=== PATIENT | male | born 1990 ===

== ENCOUNTER 2024-05-10 01:04 | Inpatient (IN) | payer OTHER, SELFPAY ==
[2024-05-10 01:54] VITALS: BMI 32.6
[2024-05-10 01:59] VITALS: BP 104/70; PULSE 95; RESP 18; TEMP 36.9; O2SAT 96
--- NOTE | 2024-05-10 03:35 | PC.ADMIT ---
Fahad Riley was admitted to at 0115 as a CV on 15 minute checks, from a [facility]. His safety/skin check was unremarkable. He was admitted due to suicidal ideation as evidenced by a text to his girlfriend stating I will watch over you from the other side. If I , I love you. He has a history of PTSD, alcohol use disorder, and polysubstance use disorder. He recently discovered that his girlfriend is and is deeply distressed by this. His toxicology screen was positive for benzodiazepines, cocaine, and THC. He reported that on or about April 30, 2024, he took a shit ton of benzos and had a seizure. He initially reported to the other hospital that he drank about 30 shots a week, but later stated he only drank a few times a month. Upon admission Fahad denied SI, HI, AVH, and depression, but rated his anxiety at 10/10. He was highly irritable during the admission process, and refused to participate after some assessments and forms were completed, stating I don't give a fuck. Just make sure I have sleeping pills, so I can sleep through this. I just want to go to the NH. He requested and signed a 3 day notice at that time.
--- NOTE | 2024-05-10 06:17 | P.EN_ITS ---
Event Note Date of Service: 05/10/24 Event Note: Pt is a 34 yo male with a pmhx significant for mild intermittent asthma, admitted to adult psych from [facility] for SI. He has a hx of PTSD, etoh and polysubstance abuse. He refused to be seen, currently sleeping and was highly irritable with the nursing staff. mood disorder - plan per psych mild intermittent asthma - continue albuterol PRN polysubstance use/alcohol abuse - addiction med consult - monitor CIWA Thank you for allowing me to participate in the pt's care. Signing off for now. Please reconsult if the patient is willing to be evaluated. Time Spent With Patient Time: Total time managing care of this patient today ____ minutes.
[2024-05-10 08:00] VITALS: BP 128/63; PULSE 92; RESP 18; TEMP 36.2; O2SAT 97
--- NOTE | 2024-05-10 08:45 | HO.PSYADMNOT ---
HPI Date of Service: 05/10/24 Chief Complaint: PTSD, Alchohol Use Disorder Sources of Information: patient interviewed, chart reviewed and crisis/core team assessment reviewed HPI Subjective Notes: Avila Warning and Conditional Voluntary Diagnostics Vital Signs (24Hr): Vital Signs - 24 hr 05/10/24 01:59 Temperature 98.4 F Pulse Rate 95 Respiratory Rate 18 Blood Pressure 104/70 Pulse Oximetry 96 Oxygen Delivery Method Room Air BMI result Body Mass Index 32.6 Labs 05/10/24 07:59 Labs: Laboratory Results - last 48 hr 05/10/24 08:29 Hold Purple Top SEE NOTE Meds/Allergies Meds Home Medications ?Medication ?Instructions ?Recorded ?Confirmed ?Type albuterol sulfate 1.25 mg/3 mL 5 mg inhalation Q4H PRN wheezing 05/10/24 05/10/24 History solution for nebulization albuterol sulfate 90 mcg/actuation 2 puff inhalation Q4H 05/10/24 05/10/24 History aerosol inhaler (Ventolin HFA) Allergies Allergies Allergy/AdvReac Type Severity Reaction Status Date / Time erythromycin base Allergy Unknown Unknown Verified 05/10/24 01:57 [From Erythrocin] Assessment & Plan Statement Statement: I have reviewed the history and physical and performed a pertinent examination on my patient. No changes have occurred unless specified. If the History and Physical was not performed prior to admission, the Hospitalist's service will be consulted for completing the admission physical. Time Spent With Patient Time: Total time managing care of this patient today ____ minutes.
[2024-05-10 08:52] LABS: Alanine Aminotransferase 24 U/L (0-40); Albumin Level 4.3 g/dL (3.5-5.0); Alkaline Phosphatase 60 U/L (39-117); Anion Gap 12 (12-20); Aspartate Amino Transferase 23 U/L (5-37); Bilirubin Total 0.4 mg/dL (0.0-1.0); Blood Urea Nitrogen 15 mg/dL (9-16); Calcium 9.5 mg/dL (8.4-10.2); Carbon Dioxide 26 mmol/L (22-29); Chloride 108 mmol/L (96-108); Creatinine Clr Calc Pharmacy 185.4; Estimated Glomerular Filt Rate > 60; Glucose Random 88 mg/dL (60-115); Potassium 4.3 mmol/L (3.3-5.1); Sodium 142 mmol/L (135-145); Total Protein 7.6 g/dL (6.5-8.0)
[2024-05-10] MEDS: clonazePAM 1 MG TABLET PO ×2 (09:00→21:48)
[2024-05-10] MEDS: Nicotine 21 MG PATCH.TD24 TRANSDERMA (09:02)
[2024-05-10] MEDS: Nicotine Polacrilex 2 MG GUM BUCCAL (09:03)
[2024-05-10] MEDS: Sertraline HCL 100 MG TABLET PO (12:20)
[2024-05-10] MEDS: LORazepam 1 MG TABLET 2 MG PO ×2 (12:37→21:56)
[2024-05-10] MEDS: hydrOXYzine HCL 25 MG TABLET PO ×2 (12:38→21:48)
--- NOTE | 2024-05-10 17:18 | P.HPPS_ITS ---
HPI Date of Service: 05/10/24 Chief Complaint: PTSD, Alchohol Use Disorder Sources of Information: patient interviewed, chart reviewed and crisis/core team assessment reviewed HPI Subjective Notes: Avila Warning and Conditional Voluntary Healthcare Proxy: No Guardianship: No Medical Problems Affecting Mental Status: No Narrative: 34 yo male, [facility] [place] transfer, from [place] war. To ER after elaine called 911 as he texted her stating I love you and I will leave you everything. I will watch over you and mom from the other side. He had stopped drinking and had seizure activity in front of elaine. He then drank 30 shots of whiskey last night, BAL 29 and was abusing xanax and cocaine. [facility]. He reports he is expecting a daughter in September 2024 (IVF rx), had an argument with his girlfriend, and I need to get myself straight before the child is born . Pt is confused as to why he is here and not in [facility] system. We will attempt to help him return to his providers. Active nightmares, flashbacks with PTSD sx. Past Psychiatric History: IP: Hx of [place] OP: Yes, psychopharm, cannot recall where PTSD hx Reports of SI, no SA, hx of aggression, IRISH, detox Medical Evaluation Reviewed: Yes [facility] Medical History (Updated 05/10/24 @ 18:16 by Nita Cerrato, [employer]) Cocaine use disorder Severe benzodiazepine use disorder Alcohol use disorder PTSD (post-traumatic stress disorder) Narrative: Asthma Substance Use-alcohol, cocaine, xanax, nicotine Narrative: Tonsillectomy Substance History: Reports cocaine, nicotine, xanax Alcohol 30 drinks/week; 30 shots/week First use age 15, usually whiskey longest sobriety ~60 days Seizures three days this week due to withdrawal Trauma History: [place] vet Diagnostics Vital Signs (24Hr): Vital Signs - 24 hr 05/10/24 01:59 05/10/24 08:00 Temperature 98.4 F 97.2 F Pulse Rate 95 92 Respiratory Rate 18 18 Blood Pressure 104/70 128/63 Pulse Oximetry 96 97 Oxygen Delivery Method Room Air Room Air BMI result Body Mass Index 32.6 Labs 05/10/24 07:59 Labs: Laboratory Results - last 48 hr 05/10/24 05/10/24 07:59 08:29 Hold Purple Top SEE NOTE Sodium 142 Potassium 4.3 Chloride 108 Carbon Dioxide 26 Anion Gap 12 BUN 15 Creatinine 0.73 Estim Creat Clear Calc 185.4 Estimated GFR > 60 Random Glucose 88 Calcium 9.5 Total Bilirubin 0.4 AST 23 ALT 24 Alkaline Phosphatase 60 Total Protein 7.6 Albumin 4.3 Meds/Allergies Meds Home Medications ?Medication ?Instructions ?Recorded ?Confirmed ?Type albuterol sulfate 1.25 mg/3 mL 5 mg inhalation Q4H PRN wheezing 05/10/24 05/10/24 History solution for nebulization albuterol sulfate 90 mcg/actuation 2 puff inhalation Q4H 05/10/24 05/10/24 History aerosol inhaler (Ventolin HFA) Allergies Allergies Allergy/AdvReac Type Severity Reaction Status Date / Time erythromycin base Allergy Unknown Unknown Verified 05/10/24 01:57 [From Erythrocin] Mental Status Exam Mental Status Exam Patient Appearance: Appropriate Patient Orientation: Person, Place, Time and Situation Level of Consciousness: Alert Patient Behavior: Appropriate, Talkative, Cooperative and Good Eye Contact Mood Description: Depressed Affect Description: Flat Patient Cognition Impaired: No Ability to Follow Directions: Fair Speech Pattern: Spontaneous Speech Memory Description: Episodic Impaired Hallucinations: None Delusions: Not Present Perceptual Disturbances: Depersonalization and Derealization Thought Process: Rumination Thought Content: positive for Perseveration Depressive Symptoms: Thoughts of /Suicide Judgement: Fair Assessment & Plan Assessment & Plan (1) PTSD (post-traumatic stress disorder): Status: Acute Code(s): F43.10 - Post-traumatic stress disorder, unspecified (2) Alcohol use disorder: Status: Acute Code(s): F10.90 - Alcohol use, unspecified, uncomplicated (3) Severe benzodiazepine use disorder: Status: Acute Code(s): F13.20 - Sedative, hypnotic or anxiolytic dependence, uncomplicated (4) Cocaine use disorder: Status: Acute Code(s): F14.10 - Cocaine abuse, uncomplicated Plan PTSD, Alcohol, benzodiazapine use disorder, cocaine use disorder. Plan: Admit, CV, 15 minute checks CIWA Klonopin scheduled (Xanax withdrawal) Lorazepam prn MVI, Thiamine, Folic Acid Pt requests [facility] admit- will begin inquiry Diagnostics Collateral Contacts Discharge planning. Patient educated on: therapeutic strategies and other Reason for continued inpatient stay Substantial Risk for: harm to self, rapid decompensation and med/psych decompensation Statement Statement: I have reviewed the history and physical and performed a pertinent examination on my patient. No changes have occurred unless specified. If the History and Physical was not performed prior to admission, the Hospitalist's service will be consulted for completing the admission physical. Time Spent With Patient Time: Total time managing care of this patient today ____ minutes.
[2024-05-10] MEDS: LORazepam 1 MG TABLET PO (18:06)
[2024-05-10 20:00] VITALS: BP 135/85; PULSE 84; RESP 16; TEMP 36.4; O2SAT 98
[2024-05-10] MEDS: Acetaminophen 325 MG TABLET 650 MG PO (21:56)
[2024-05-11] MEDS: LORazepam 1 MG TABLET 2 MG PO ×5 (02:26→22:50)
[2024-05-11 05:50] VITALS: BP 112/71; PULSE 81
[2024-05-11] MEDS: hydrOXYzine HCL 25 MG TABLET PO ×2 (05:51→18:02)
[2024-05-11] MEDS: LORazepam 1 MG TABLET PO ×2 (05:51→13:13)
--- NOTE | 2024-05-11 06:06 | PC.NURSE ---
Patient woke up at at 0545 c/o feeling restless . CIWA assessment done, score of 7 obtained. Patient given Ativan 1 mg po and Hydroxyzine 25 mg po as prns.
[2024-05-11] MEDS: clonazePAM 1 MG TABLET PO ×2 (08:55→20:27)
[2024-05-11] MEDS: Thiamine HCL 100 MG TABLET PO (08:55)
[2024-05-11] MEDS: Multivitamin TABLET 1 TAB PO (08:55)
[2024-05-11] MEDS: Sertraline HCL 100 MG TABLET PO (08:55)
[2024-05-11] MEDS: Folic Acid 1 MG TABLET PO (08:56)
[2024-05-11] MEDS: Nicotine 21 MG PATCH.TD24 TRANSDERMA (09:06)
[2024-05-11 09:13] VITALS: BP 114/68; PULSE 88; RESP 18; TEMP 36.5; O2SAT 95
[2024-05-11 09:23] LABS: Estimated Average Glucose 103 mg/dL; Hemoglobin A1C 140.4525 umol/L; Hemoglobin A1c % 5.2 % (<6.0); Total Hemoglobin (HGBA1C) 4148.9096 umol/L
[2024-05-11 09:40] LABS: Cholesterol 218 mg/dL (<200); HDL Cholesterol 48 mg/dL (>40); LDL Cholesterol Calculated 137 mg/dL (<100); Triglycerides 168 mg/dL (<150)
[2024-05-11 10:40] LABS: Vitamin B12 386 pg/mL (200-900)
[2024-05-11 10:45] LABS: Thyroid Stimulating Hormone 3.59 uIU/mL (0.32-4.0)
--- NOTE | 2024-05-11 15:43 | MHC.RECOVRN ---
AUDIT-C Brief Intervention Pt had positive screen for unhealthy alcohol use on admission, subsequently met with t/w to discuss alcohol use and recovery supports/options. This financial writer met with patient to discuss current alcohol use and concerns related to increased risk of alcohol related problems.? Pt reports 1+ liter whiskey daily x a few years. Discussed how alcohol use has impacted health, including negative impact on social life/relationships. Withdrawal History: denies history of withdrawal seizure from alcohol, reports a seizure from benzodiazepine withdrawal years ago Treatment History: 10+ ATS admissions Supports:?mom, girlfriend Discussed risk reduction strategies including drinking below the recommended limit. Provided pt with written resources including information on inpatient and outpatient treatment, JOSEE, harm reduction, and recovery coaching. Pt plans to [facility] upon [facility]. Pt is also interested in [facility], Tova Camacho APRN, shaunna. Pt provided with t/w contact information if questions or concerns arise. Denies other questions or concerns at this time.?
--- NOTE | 2024-05-11 18:22 | P.PNPSI_ITS ---
Subjective Subjective Reason For Visit: PTSD, Alchohol Use Disorder Diagnostics Vital Signs (24Hr): Vital Signs - 24 hr 05/10/24 20:00 05/11/24 05:50 05/11/24 09:13 Temperature 97.5 F 97.7 F Pulse Rate 84 81 88 Respiratory Rate 16 18 Blood Pressure 135/85 112/71 114/68 Pulse Oximetry 98 95 Oxygen Delivery Method Room Air Room Air BMI result Body Mass Index 32.6 Labs 05/10/24 07:59 Labs: Laboratory Results - last 48 hr 05/10/24 05/10/24 05/11/24 07:59 08:29 09:06 Hold Purple Top SEE NOTE Sodium 142 Potassium 4.3 Chloride 108 Carbon Dioxide 26 Anion Gap 12 BUN 15 Creatinine 0.73 Estim Creat Clear Calc 185.4 Estimated GFR > 60 Random Glucose 88 Estimat Average Glucose 103 Hemoglobin A1c % 5.2 Calcium 9.5 Total Bilirubin 0.4 AST 23 ALT 24 Alkaline Phosphatase 60 Total Protein 7.6 Albumin 4.3 Triglycerides 168 H Cholesterol 218 H LDL Cholesterol, Calc 137 H HDL Cholesterol 48 Vitamin B12 386 TSH 3.59 Medications Medications Current Medications Acetaminophen (Acetaminophen 325 Mg Tablet) 650 mg PO Q6H PRN PRN Reason: Headache/Pain Mild Scale (1-3) Last Admin: 05/10/24 21:56 Dose: 650 mg Al Hydroxide/Mg Hydroxide (Magnesium Hydrox/Alum Hydrox 30 Ml Oral.Susp) 30 ml PO Q6H PRN PRN Reason: Heartburn/Nausea Albuterol Sulfate (Albuterol Sulfate (0.042%) 1.25 Mg/3 Ml Vial.Neb) 5 mg INHALE RQ4H PRN PRN Reason: wheezing Albuterol Sulfate (Albuterol Sulfate 90 Mcg 8 Gm Inhaler) 2 puff INHALE RQ4H PRN PRN Reason: sob Clonazepam (Clonazepam 1 Mg Tablet) 1 mg PO BID [facility] Last Admin: 05/11/24 08:55 Dose: 1 mg Folic Acid (Folic Acid 1 Mg Tablet) 1 mg PO DAILY [facility] Last Admin: 05/11/24 08:56 Dose: 1 mg Hydroxyzine HCl (Hydroxyzine Hcl 25 Mg Tablet) 25 mg PO Q6H PRN PRN Reason: Anxiety Last Admin: 05/11/24 18:02 Dose: 25 mg Lorazepam (Lorazepam 1 Mg Tablet) 1 mg PO Q2H PRN PRN Reason: CIWA 6-10 Last Admin: 05/11/24 13:13 Dose: 1 mg Lorazepam (Lorazepam 1 Mg Tablet) 2 mg PO Q2H PRN PRN Reason: CIWA 11 and above Last Admin: 05/11/24 16:17 Dose: 2 mg Magnesium Hydroxide (Milk Of Magnesia 30 Ml Oral.Susp) 30 ml PO DAILY PRN PRN Reason: Constipation Multivitamins/Vitamin C (Multivitamin Tablet) 1 tab PO DAILY [facility] Last Admin: 05/11/24 08:55 Dose: 1 tab Nicotine (Nicotine 21 Mg Patch.Td24) 21 mg TRANSDERMA DAILY PRN PRN Reason: nicotine cravings Last Admin: 05/11/24 09:06 Dose: 21 mg Nicotine Polacrilex (Nicotine Polacrilex 2 Mg Gum) 4 mg BUCCAL Q2H PRN PRN Reason: Nicotine Cravings Olanzapine (Olanzapine 5 Mg Tablet) 5 mg PO Q4H PRN PRN Reason: agitation Prazosin HCl (Prazosin Hcl 1 Mg Capsule) 1 mg PO BEDTIME PRN; Protocol PRN Reason: nightmares, PTSD sx Sertraline HCl (Sertraline Hcl 100 Mg Tablet) 100 mg PO DAILY [facility] Last Admin: 05/11/24 08:55 Dose: 100 mg Thiamine HCl (Thiamine Hcl 100 Mg Tablet) 100 mg PO DAILY [facility] Last Admin: 05/11/24 08:55 Dose: 100 mg Trazodone HCl (Trazodone Hcl 50 Mg Tablet) 50 mg PO BEDTIME MRX1 PRN PRN Reason: Insomnia Allergies Allergies Allergy/AdvReac Type Severity Reaction Status Date / Time erythromycin base Allergy Unknown Unknown Verified 05/10/24 01:57 [From Erythrocin] Assessment & Plan Assessment & Plan (1) PTSD (post-traumatic stress disorder): Status: Acute Code(s): F43.10 - Post-traumatic stress disorder, unspecified (2) Alcohol use disorder: Status: Acute Code(s): F10.90 - Alcohol use, unspecified, uncomplicated (3) Severe benzodiazepine use disorder: Status: Acute Code(s): F13.20 - Sedative, hypnotic or anxiolytic dependence, uncomplicated (4) Cocaine use disorder: Status: Acute Code(s): F14.10 - Cocaine abuse, uncomplicated Plan PTSD, Alcohol, benzodiazapine use disorder, cocaine use disorder. Plan: Admit, CV, 15 minute checks KARLY Klonopin scheduled (Xanax withdrawal) Lorazepam prn MVI, Thiamine, Folic Acid Pt requests [facility] admit- will begin inquiry Diagnostics Collateral Contacts Discharge planning. Time Spent With Patient Time: Total time managing care of this patient today ____ minutes.
[2024-05-11 20:00] VITALS: BP 116/68; PULSE 84; RESP 16; TEMP 36.2; O2SAT 96
[2024-05-11] MEDS: traZODone HCL 50 MG TABLET PO ×2 (20:33→22:50)
[2024-05-12 00:40] VITALS: BP 107/74; PULSE 91
[2024-05-12] MEDS: OLANZapine 5 MG TABLET PO (00:43)
--- NOTE | 2024-05-12 03:49 | PC.NURSE ---
Patient was encouraged to drink fluids. This com writer noted empty cereal cartons and several juice cartons at the bedside.
[2024-05-12 08:00] VITALS: BP 114/61; PULSE 86; RESP 18; TEMP 36.4; O2SAT 97
[2024-05-12] MEDS: Thiamine HCL 100 MG TABLET PO (09:57)
[2024-05-12] MEDS: Sertraline HCL 100 MG TABLET PO (09:58)
[2024-05-12] MEDS: clonazePAM 1 MG TABLET PO (09:58)
[2024-05-12] MEDS: Folic Acid 1 MG TABLET PO (09:58)
[2024-05-12] MEDS: Multivitamin TABLET 1 TAB PO (09:58)
--- NOTE | 2024-05-12 10:01 | HO.PSYCHPN ---
Subjective Subjective Reason For Visit: PTSD, Alchohol Use Disorder Diagnostics Vital Signs (24Hr): Vital Signs - 24 hr 05/11/24 20:00 05/12/24 00:40 Temperature 97.2 F Pulse Rate 84 91 Respiratory Rate 16 Blood Pressure 116/68 107/74 Pulse Oximetry 96 Oxygen Delivery Method Room Air BMI result Body Mass Index 32.6 Labs 05/10/24 07:59 Labs: Laboratory Results - last 48 hr 05/11/24 09:06 Estimat Average Glucose 103 Hemoglobin A1c % 5.2 Triglycerides 168 H Cholesterol 218 H LDL Cholesterol, Calc 137 H HDL Cholesterol 48 Vitamin B12 386 TSH 3.59 Medications Medications Current Medications Acetaminophen (Acetaminophen 325 Mg Tablet) 650 mg PO Q6H PRN PRN Reason: Headache/Pain Mild Scale (1-3) Last Admin: 05/10/24 21:56 Dose: 650 mg Al Hydroxide/Mg Hydroxide (Magnesium Hydrox/Alum Hydrox 30 Ml Oral.Susp) 30 ml PO Q6H PRN PRN Reason: Heartburn/Nausea Albuterol Sulfate (Albuterol Sulfate (0.042%) 1.25 Mg/3 Ml Vial.Neb) 5 mg INHALE RQ4H PRN PRN Reason: wheezing Albuterol Sulfate (Albuterol Sulfate 90 Mcg 8 Gm Inhaler) 2 puff INHALE RQ4H PRN PRN Reason: sob Clonazepam (Clonazepam 1 Mg Tablet) 1 mg PO BID [facility] Last Admin: 05/12/24 09:58 Dose: 1 mg Folic Acid (Folic Acid 1 Mg Tablet) 1 mg PO DAILY [facility] Last Admin: 05/12/24 09:58 Dose: 1 mg Hydroxyzine HCl (Hydroxyzine Hcl 25 Mg Tablet) 25 mg PO Q6H PRN PRN Reason: Anxiety Last Admin: 05/11/24 18:02 Dose: 25 mg Lorazepam (Lorazepam 1 Mg Tablet) 1 mg PO Q2H PRN PRN Reason: CIWA 6-10 Last Admin: 05/11/24 13:13 Dose: 1 mg Lorazepam (Lorazepam 1 Mg Tablet) 2 mg PO Q2H PRN PRN Reason: CIWA 11 and above Last Admin: 05/11/24 22:50 Dose: 2 mg Magnesium Hydroxide (Milk Of Magnesia 30 Ml Oral.Susp) 30 ml PO DAILY PRN PRN Reason: Constipation Multivitamins/Vitamin C (Multivitamin Tablet) 1 tab PO DAILY [facility] Last Admin: 05/12/24 09:58 Dose: 1 tab Nicotine (Nicotine 21 Mg Patch.Td24) 21 mg TRANSDERMA DAILY PRN PRN Reason: nicotine cravings Last Admin: 05/11/24 09:06 Dose: 21 mg Nicotine Polacrilex (Nicotine Polacrilex 2 Mg Gum) 4 mg BUCCAL Q2H PRN PRN Reason: Nicotine Cravings Olanzapine (Olanzapine 5 Mg Tablet) 5 mg PO Q4H PRN PRN Reason: agitation Last Admin: 05/12/24 00:43 Dose: 5 mg Prazosin HCl (Prazosin Hcl 1 Mg Capsule) 1 mg PO BEDTIME PRN; Protocol PRN Reason: nightmares, PTSD sx Sertraline HCl (Sertraline Hcl 100 Mg Tablet) 100 mg PO DAILY [facility] Last Admin: 05/12/24 09:58 Dose: 100 mg Thiamine HCl (Thiamine Hcl 100 Mg Tablet) 100 mg PO DAILY [facility] Last Admin: 05/12/24 09:57 Dose: 100 mg Trazodone HCl (Trazodone Hcl 50 Mg Tablet) 50 mg PO BEDTIME MRX1 PRN PRN Reason: Insomnia Last Admin: 05/11/24 22:50 Dose: 50 mg Allergies Allergies Allergy/AdvReac Type Severity Reaction Status Date / Time erythromycin base Allergy Unknown Unknown Verified 05/10/24 01:57 [From Erythrocin] Assessment & Plan Assessment & Plan (1) PTSD (post-traumatic stress disorder): Status: Acute Code(s): F43.10 - Post-traumatic stress disorder, unspecified (2) Alcohol use disorder: Status: Acute Code(s): F10.90 - Alcohol use, unspecified, uncomplicated (3) Severe benzodiazepine use disorder: Status: Acute Code(s): F13.20 - Sedative, hypnotic or anxiolytic dependence, uncomplicated (4) Cocaine use disorder: Status: Acute Code(s): F14.10 - Cocaine abuse, uncomplicated Plan PTSD, Alcohol, benzodiazapine use disorder, cocaine use disorder. Plan: Admit, CV, 15 minute checks CIWA Klonopin scheduled (Xanax withdrawal) Lorazepam prn MVI, Thiamine, Folic Acid Pt requests [facility] admit- will begin inquiry Diagnostics Collateral Contacts Discharge planning. Time Spent With Patient Time: Total time managing care of this patient today ____ minutes.
[2024-05-12] MEDS: LORazepam 1 MG TABLET PO (11:27)
--- NOTE | 2024-05-12 19:00 | P.DS_ITS ---
DS: Providers Provider Date of admission: 05/10/24 01:04 Primary care physician: Unknown Physician Consults: 05/10/24 02:31 Addiction Medicine Routine Consulting Provider: Addiction Covering Reason for consultation: AUD, IRISH Has provider been notified: Yes 05/10/24 02:40 Consult to Hospitalist Routine Comment: Consulting [place] [facility] Reason For Exam: medical h&p DS: Diagnosis Discharge Diagnosis (1) PTSD (post-traumatic stress disorder): Status: Acute (2) Alcohol use disorder: Status: Acute (3) Severe benzodiazepine use disorder: Status: Acute (4) Cocaine use disorder: Status: Acute DS: Medications Discharge Medications Home Medications: Home Medications ?Medication ?Instructions ?Recorded ?Confirmed albuterol sulfate 1.25 mg/3 mL 5 mg inhalation Q4H PRN wheezing 05/10/24 05/10/24 solution for nebulization albuterol sulfate 90 mcg/actuation 2 puff inhalation Q4H 05/10/24 05/10/24 aerosol inhaler (Ventolin HFA) Previous Rx's ?Medication ?Instructions ?Recorded clonazepam 1 mg tablet 1 mg PO BID #14 tabs 05/12/24 folic acid 1 mg tablet 1 mg PO DAILY #30 tabs 05/12/24 hydroxyzine HCl 25 mg tablet 25 mg PO Q6H PRN Anxiety #30 tabs 05/12/24 multivitamin (Daily-Candi tablet) 1 tab PO DAILY #30 tabs 05/12/24 nicotine 21 mg/24 hr daily 21 mg transdermal DAILY PRN 05/12/24 transdermal patch nicotine cravings #30 ea sertraline 100 mg tablet 100 mg PO DAILY #30 tabs 05/12/24 thiamine mononitrate (vit B1) 100 100 mg PO DAILY #30 tabs 05/12/24 mg tablet Data Data Completed and Pending Completed studies during hospitalization [Text1]: 05/10/24 05/10/24 05/11/24 07:59 08:29 09:06 Hold Purple Top SEE NOTE Sodium 142 Potassium 4.3 Chloride 108 Carbon Dioxide 26 Anion Gap 12 BUN 15 Creatinine 0.73 Estim Creat Clear Calc 185.4 Estimated GFR > 60 Random Glucose 88 Estimat Average Glucose 103 Hemoglobin A1c % 5.2 Calcium 9.5 Total Bilirubin 0.4 AST 23 ALT 24 Alkaline Phosphatase 60 Total Protein 7.6 Albumin 4.3 Triglycerides 168 H Cholesterol 218 H LDL Cholesterol, Calc 137 H HDL Cholesterol 48 Vitamin B12 386 TSH 3.59 DS: Summary Time Spent with Patient Time attestation: Total time managing care of this patient today ____ minutes. Discharge Plan Discharge Anticipated Discharge Date/Time: 05/12/24 12:00 Patient Disposition: Home, Self-Care Discharge Diagnosis: PTSD Alcohol, Cocaine, Benzodiazepine use disorder Referrals: Physician,Unknown J [Primary Care Provider] - 1 Week Discharge Medications: New multivitamin [Daily-Candi] Tablet 1 tab PO DAILY Qty: 30 0RF sertraline 100 mg Tablet 100 mg PO DAILY Qty: 30 0RF clonazepam 1 mg Tablet 1 mg PO BID Qty: 14 0RF nicotine 21 mg/24 hr Patch 24 Hour 21 mg transdermal DAILY PRN (Reason: nicotine cravings) Qty: 30 0RF folic acid 1 mg Tablet 1 mg PO DAILY Qty: 30 0RF hydroxyzine HCl 25 mg Tablet 25 mg PO Q6H PRN (Reason: Anxiety) Qty: 30 0RF thiamine mononitrate (vit B1) 100 mg Tablet 100 mg PO DAILY Qty: 30 0RF Continued albuterol sulfate 1.25 mg/3 mL solution for nebulization 5 mg inhalation Q4H PRN (Reason: wheezing) albuterol sulfate [Ventolin HFA] 90 mcg/actuation HFA aerosol inhaler 2 puff inhalation Q4H Discharge Orders: Discharge Order (Routine); Ordered 05/12/24 Ordered By: Nita Cerrato Diet: Advance to usual diet Activity on Discharge: As tolerated Stand Alone Forms: Patient Portal Discharge page, Community Support Print Language: Korean Care Plan Goals: Mood and Behavioral Stabilization Abstinence from alcohol, substances Health Concerns: Mood and Behavioral Stabilization Abstinence from alcohol, substances Plan of Treatment: Pt plans to go to [facility] for ongoing treatment. He completed an intake on 05/11/24 [facility] will transport him Assessment: Denies SI,HI, AH, VH Wanting to continue treatment as he and sailaja are expecting a daughter in September 2024. Discharge Date/Time: 05/12/24 13:40
== END 2024-05-12 13:40 | disposition home or self-care (01) | DRG 882 ==
PROVIDERS: Social Worker; Admitting Provider Psychiatry & Neurology Psychiatry; Visit Provider Clinical Nurse Specialist Psychiatric/Mental Health, Adult
DX: F43.10 Post-traumatic stress disorder, unspecified (principal); F13.20 Sedative, hypnotic or anxiolytic dependence, uncomplicated; F17.210 Nicotine dependence, cigarettes, uncomplicated; F19.90 Other psychoactive substance use, unspecified, uncomplicated; F10.10 Alcohol abuse, uncomplicated; J45.20 Mild intermittent asthma, uncomplicated; Z71.6 Tobacco abuse counseling; Z79.899 Other long term (current) drug therapy
CPT/HCPCS: 36415; 80053; 80061; 82607; 83036; 84443

== ENCOUNTER → 2024-05-10 01:04 | Outpatient (BNV) | payer SELFPAY | PROVIDERS: Admitting Provider Psychiatry & Neurology Psychiatry; Visit Provider Clinical Nurse Specialist Psychiatric/Mental Health, Adult | DX: F14.10 Cocaine abuse, uncomplicated (principal); F13.20 Sedative, hypnotic or anxiolytic dependence, uncomplicated; F10.90 Alcohol use, unspecified, uncomplicated; F43.11 Post-traumatic stress disorder, acute | CPT/HCPCS: 90792; 99232; 99238 ==